=== PATIENT | female | born 1990 | race African-American/Black ===

== ENCOUNTER 2024-05-17 07:27 | Emergency (ER) | payer SELFPAY ==
[~2024-05-17] VITALS: Ht 172.7 cm; Wt 70.3 kg
[2024-05-17 07:40] VITALS: BP 129/79; TEMP 98.3
[2024-05-17 08:05] VITALS: O2SAT 98
[2024-05-17 17:15] LABS: HIV-1 p24 ANTIGEN NON REACTIVE (NONREACTIVE); HIV-1/2 ANTIBODY NON REACTIVE (NONREACTIVE)
== END 2024-05-17 08:06 | disposition home or self-care (01) ==
LOC: ER 07:54
DX: J02.9 Acute pharyngitis, unspecified (principal); J45.909 Unspecified asthma, uncomplicated; Z60.2 Problems related to living alone
CPT/HCPCS: 36415; 86403-TC; 87070-TC; 87806